=== PATIENT | male | born 1960 | race Caucasian/White ===

== ENCOUNTER 2024-01-27 13:10 | Emergency (ER) | payer BC ==
[~2024-01-27] VITALS: Ht 172.7 cm; Wt 70.5 kg
[2024-01-27 13:12] VITALS: BP 131/88; TEMP 98.3; O2SAT 97
[2024-01-27] MEDS ORDERED: TIMO5DRO5 OP (13:38)
[2024-01-27] MEDS ORDERED: ALEV220T22 PO (13:38)
[2024-01-27] MEDS: KETOROLAC 30 MG/ML 1ML VIAL IV ONE (17:03)
[2024-01-27 17:08] LABS: BASO # 0.1 10^3/uL (0.0-0.2); BASO % 0.9 % (0.0-1.0); EOS # 0.3 10^3/uL (0.0-0.5); EOS % 3.8 % (0.0-3.0); HEMOGLOBIN 15.8 g/dl (13.5-17.5); LYMPH # 2.4 10^3/uL (1.5-5.0); MEAN CORPUSCULAR HEMOGLOBIN 32.8 pg (27.0-33.0); MEAN CORPUSCULAR HGB CONC 34.3 g/dl (32.0-36.5); MEAN CORPUSCULAR VOLUME 95.6 fl (80.0-96.0); MONO # 0.6 10^3/uL (0.0-0.8); MONO % 7.7 % (2.0-8.0); NEUTROPHILS # 4.4 10^3/uL (1.5-8.5); NEUTROPHILS % 56.3 % (36.0-66.0); PLATELET COUNT, AUTOMATED 147 10^3/uL (150-450); RED BLOOD COUNT 4.81 10^6/uL (4.30-6.10); WHITE BLOOD COUNT 7.8 10^3/uL (4.0-10.0)
[2024-01-27 17:09] LABS: APPEARANCE, URINE CLEAR (CLEAR); BACTERIA, URINE AUTO NEGATIVE (NEGATIVE); BILIRUBIN, URINE AUTO NEGATIVE (NEGATIVE); BLOOD, URINE BLOOD NEGATIVE (NEGATIVE); COLOR, URINE YELLOW (YELLOW); GLUCOSE, URINE (UA) AUTO NEGATIVE (NEGATIVE); KETONE, URINE AUTO NEGATIVE (NEGATIVE); LEUKOCYTE ESTERASE, URINE AUTO NEGATIVE (NEGATIVE); NITRITE, URINE AUTO NEGATIVE (NEGATIVE); PROTEIN, URINE AUTO NEGATIVE (NEGATIVE); RBC, URINE AUTO 0 /HPF (0-3); SPECIFIC GRAVITY URINE AUTO 1.009 (1.002-1.035); SQUAMOUS EPITHELIAL CELL UR AU 0 /HPF (0-6); UROBILINOGEN, URINE AUTO 0.2 mg/dL (0.0-2.0); WBC, URINE AUTO 1 /HPF (0-3)
[2024-01-27] MEDS ORDERED: ISOVUE-370 76% 100ML VIAL As Ordered ONE (17:37)
[2024-01-27 17:41] LABS: ALBUMIN 4.3 G/DL (3.2-5.2); BILIRUBIN,DIRECT 0.1 MG/DL (<0.4); BILIRUBIN,TOTAL 0.4 MG/DL (0.3-1.2); TOTAL PROTEIN 7.4 G/DL (5.7-8.2)
[2024-01-27] MEDS ORDERED: IBUP-1022 PO (18:38)
== END 2024-01-27 18:45 | disposition home or self-care (01) ==
LOC: M ED 13:10
DX: S39.011A Strain of muscle, fascia and tendon of abdomen, initial encounter (principal); X50.0XXA Overexertion from strenuous movement or load, initial encounter; Y92.89 Other specified places as the place of occurrence of the external cause; Y93.89 Activity, other specified; Y99.8 Other external cause status; F17.200 Nicotine dependence, unspecified, uncomplicated; Z87.442 Personal history of urinary calculi; Z79.899 Other long term (current) drug therapy
CPT/HCPCS: 74177; 80047; 80076; 81001; 83690; 85025; 96374; 99283; J1885; Q9967

== ENCOUNTER 2024-06-09 11:22 | Emergency (ER) | payer BC ==
[~2024-06-09] VITALS: Ht 172.7 cm; Wt 68.2 kg
[~2024-06-09 11:22] MED LIST: ALEV220T22 PO; IBUP-1022 PO; TIMO5DRO5 OP
[2024-06-09] MEDS ORDERED: ACET-683 (11:30)
[2024-06-09 13:59] VITALS: BP 125/66; TEMP 97.9; O2SAT 99
[2024-06-09] MEDS: BOOSTRIX VACCINE (TETANUS/DIPHTH/ACEL. PERTUSSIS) 0.5ML SYR IM ONE (15:55)
[2024-06-09] MEDS: ACETAMINOPHEN 500 MG TAB PO ONE (16:00)
== END 2024-06-09 16:11 | disposition home or self-care (01) ==
LOC: M ED 11:22
DX: S01.01XA Laceration without foreign body of scalp, initial encounter (principal); S06.0X0A Concussion without loss of consciousness, initial encounter; Y92.9 Unspecified place or not applicable; Y93.9 Activity, unspecified; Y99.0 Civilian activity done for income or pay; W00.0XXA Fall on same level due to ice and snow, initial encounter; Z79.1 Long term (current) use of non-steroidal anti-inflammatories (NSAID)

== ENCOUNTER → 2024-07-31 | Outpatient (CLI) | payer BC ==
[~2024-07-31] MED LIST changes: +ACET-683
[2024-07-31 14:43] LABS: RHEUMATOID FACTOR QUANT 15.7 IU/ML (<14)
[2024-07-31 14:47] LABS: THYROID STIMULATING HORMONE 3.056 uIU/ML (0.55-4.78)
[2024-07-31 14:48] LABS: TOTAL 25(OH) VITAMIN D 18.8 NG/ML (20.0-100.0)
[2024-07-31 14:49] LABS: FOLATE 14.8 NG/ML (>5.4)
[2024-08-02 00:07] LABS: T P ELECTROPHORESIS SO 7.2 g/dL (6.1-8.1)
== END ==
LOC: M WUC 09:46
PROVIDERS: ATTEND Psychiatry & Neurology Neurology
DX: E11.9 Type 2 diabetes mellitus without complications (principal); R51.9 Headache, unspecified; R20.2 Paresthesia of skin

== ENCOUNTER 2024-12-25 11:18 | Inpatient (IN) | payer MEDICARE ==
[~2024-12-25] VITALS: Ht 172.7 cm; Wt 63.8 kg
[~2024-12-25 11:18] MED LIST changes: +AMIT25TA19 PO; +GABA-1172 PO; +OXYC-517 PO; +SENN-186 PO; +SODI650T PO; +wheelchair
[2024-12-25 12:43] LABS: PLATELET COUNT, AUTOMATED 97 10^3/uL (150-450)
[2024-12-25] MEDS ORDERED: HOME MED LIST COMPLETE! XX SCH (13:05)
[2024-12-25] MEDS ORDERED: LIDO1PAD TOP (13:05)
[2024-12-25] MEDS: DEXTROSE 50% 50 ML SYRINGE IV STA ×2 (13:14→18:16)
[2024-12-25] MEDS: D5W/0.9% SODIUM CHLORIDE 1,000 ML IV SCH ×2 (13:14→19:28)
[2024-12-25 14:11] LABS: CALCIUM LEVEL 8.4 MG/DL (8.3-10.6); CARBON DIOXIDE LEVEL 26 MMOL/L (20-31); CHLORIDE LEVEL 96 MMOL/L (98-107); CREATININE FOR GFR 0.33 MG/DL (0.70-1.30); GLOMERULAR FILTRATION RATE > 90.0 (>49); POTASSIUM SERUM 4.5 MMOL/L (3.5-5.1); SODIUM LEVEL 140 MMOL/L (136-145)
[2024-12-25] MEDS: SODIUM CHLORIDE 0.9% INJ 10 ML SYR IV PRN (15:16)
[2024-12-25] MEDS: HEPARIN LOCK FLUSH 100 UNITS/ML 3 ML SYRINGE IV PRN (15:17)
[2024-12-25] MEDS ORDERED: ISOVUE-370 76% 100 ML VIAL As Ordered ONE (15:32)
[2024-12-25] MEDS: [UNRECOGNIZED DRUG - OTHER] IV ONE (15:54)
[2024-12-25] MEDS: NS 0.9% IV ONE (15:54)
[2024-12-25] MEDS: PIPERACILLIN/TAZOBACTAM SOD 4.5 GM in DEXTROSE 5% (D5W) ADV/MINI-BAG 50 ML IV ONE (15:54)
[2024-12-25 16:17] LABS: BASO # 0.1 10^3/uL (0.0-0.2); BASO % 0.3 % (0.0-1.0); EOS # 0.0 10^3/uL (0.0-0.5); EOS % 0.1 % (0.0-3.0); LYMPH # 1.3 10^3/uL (1.5-5.0); LYMPH % 7.0 % (24.0-44.0); MONO # 1.2 10^3/uL (0.0-0.8); MONO % 6.4 % (2.0-8.0); NEUTROPHILS # 15.5 10^3/uL (1.5-8.5); NEUTROPHILS % 84.7 % (36.0-66.0)
[2024-12-25 16:19] LABS: PLATELET COUNT, AUTOMATED 98 10^3/uL (150-450)
[2024-12-25 16:40] LABS: ALT/SGPT 80.0 U/L (7.0-40); AST/SGOT 257.0 U/L (<34)
[2024-12-25] MEDS ORDERED: ACETAMINOPHEN 325 MG TAB PO PRN (18:00)
[2024-12-25] MEDS ORDERED: MAALOX 30 ML SUSP *UDC PO PRN (18:00)
[2024-12-25] MEDS ORDERED: MOM 30 ML SUSPENSION UDC PO PRN (18:00)
[2024-12-25] MEDS ORDERED: GLUCAGON INJ 1 MG VIAL SC PRN (18:50)
[2024-12-25] MEDS ORDERED: GLUCOSE 4 GM CHEW PO PRN (18:50)
[2024-12-25] MEDS: GLUCOSE 4 GM CHEW PO SCH (19:35)
[2024-12-25 20:08] LABS: INR 1.09
[2024-12-25 21:20] LABS: ABG BASE EXCESS -10.2 (-2.0-2.0); ABG HCO3 14.0 MMOL/L (22.0-26.0); ABG O2 SATURATION 94.8 % (95.0-99.0); ABG PARTIAL PRESSURE CO2 26.7 mmHg (35.0-45.0); ABG PARTIAL PRESSURE O2 85.3 mmHg (75.0-100.0); ABG STANDARD HCO3 16.3 MMOL/L. (22.0-26.0); ABG TOTAL CO2 14.9 MMOL/L (23.0-31.0); ABG pH (ARTERIAL) 7.339 UNITS (7.350-7.450)
[2024-12-25] MEDS: PIPERACILLIN/TAZOBACTAM SOD 4.5 GM in DEXTROSE 5% (D5W) ADV/MINI-BAG 50 ML IV SCH (21:20)
[2024-12-26] MEDS: D5/LACTATED RINGERS 1000 ML IV ONE (00:28)
[2024-12-26 05:35] VITALS: BP 130/80; TEMP 98.2; O2SAT 96
[2024-12-26 07:02] LABS: BASO # 0.1 10^3/uL (0.0-0.2); BASO % 0.4 % (0.0-1.0); EOS # 0.1 10^3/uL (0.0-0.5); EOS % 0.3 % (0.0-3.0); LYMPH # 1.3 10^3/uL (1.5-5.0); LYMPH % 7.9 % (24.0-44.0); MONO # 1.3 10^3/uL (0.0-0.8); MONO % 8.2 % (2.0-8.0); NEUTROPHILS # 12.9 10^3/uL (1.5-8.5); NEUTROPHILS % 80.4 % (36.0-66.0)
[2024-12-26 07:04] LABS: PLATELET COUNT, AUTOMATED 91 10^3/uL (150-450)
[2024-12-26 07:39] LABS: ALT/SGPT 76 U/L (7.0-40); AST/SGOT 222 U/L (<34); CALCIUM LEVEL 8.4 MG/DL (8.3-10.6); CARBON DIOXIDE LEVEL 20 MMOL/L (20-31); CHLORIDE LEVEL 99 MMOL/L (98-107); CREATININE FOR GFR 0.45 MG/DL (0.70-1.30); GLOMERULAR FILTRATION RATE > 90.0 (>49); MAGNESIUM LEVEL 1.6 MG/DL (1.8-2.4); PHOSPHORUS LEVEL 3.4 MG/DL (2.4-5.1); POTASSIUM SERUM 3.9 MMOL/L (3.5-5.1); SODIUM LEVEL 144 MMOL/L (136-145)
[2024-12-26 07:45] LABS: ABG BASE EXCESS -11.7 (-2.0-2.0); ABG HCO3 13.5 MMOL/L (22.0-26.0); ABG O2 SATURATION 95.0 % (95.0-99.0); ABG PARTIAL PRESSURE CO2 29.2 mmHg (35.0-45.0); ABG PARTIAL PRESSURE O2 86.5 mmHg (75.0-100.0); ABG STANDARD HCO3 15.3 MMOL/L. (22.0-26.0); ABG TOTAL CO2 14.4 MMOL/L (23.0-31.0); ABG pH (ARTERIAL) 7.284 UNITS (7.350-7.450)
[2024-12-26 08:00] VITALS: BP 117/75; TEMP 97.5; O2SAT 97
[2024-12-26] MEDS: SODIUM BICARBONATE 150 MEQ in D5W 1,000 ML IV SCH (08:38)
[2024-12-26] MEDS: THIAMINE 200MG 2ML VIAL IM SCH (08:39)
[2024-12-26] MEDS ORDERED: GLUCOSE 4 GM CHEW PO SCH (09:00)
[2024-12-26] MEDS: DEXTROSE 50% 50 ML SYRINGE IV PRN (09:52)
[2024-12-26] MEDS: MAG SULF 1GM/100ML (MAG RUN) 1 GM in IV 1 EA IV SCH (10:41)
[2024-12-26] MEDS ORDERED: MORPHINE 10 MG/0.5 ML ORAL CONCENTRATE SOLUTION U/D SL PRN (11:35)
[2024-12-26] MEDS ORDERED: SALIVA SUBSTITUTE BTL MT PRN (11:35)
[2024-12-26] MEDS ORDERED: LORazepam 1 MG TAB PO PRN (11:35)
[2024-12-26] MEDS ORDERED: ATROPINE SULFATE 1% OPHTH SOLN 2 ML BTL SL PRN (11:35)
[2024-12-26] MEDS ORDERED: POLYVINYL ALCOHOL OPHTH SOLN 15ML (LIQUITEARS) OU PRN (11:35)
[2024-12-26] MEDS ORDERED: HYOSCYAMINE SULFATE 0.125 MG SUBL TABLET PO PRN (11:35)
[2024-12-26] MEDS ORDERED: ONDANSETRON 4MG ORAL DISINTEGRATING TAB PO PRN (11:35)
[2024-12-26] MEDS: MORPHINE 2 MG/ML 1 ML VIAL IV ONE (11:54)
[2024-12-26] MEDS: GLUCOSE 4 GM CHEW PO SCH (13:00)
[2024-12-26] MEDS: MORPHINE 10 MG/0.5 ML ORAL CONCENTRATE SOLUTION U/D SL SCH (15:57)
[2024-12-26] MEDS: LORazepam 1 MG TAB PO SCH (20:42)
[2024-12-28 17:20] VITALS: O2SAT 96
[2024-12-29] MEDS: SODIUM BICARBONATE 325 MG TAB PO SCH (14:00)
[2024-12-29] MEDS: MORPHINE 10 MG/0.5 ML ORAL CONCENTRATE SOLUTION U/D SL PRN (22:29)
[2024-12-31] MEDS ORDERED: ATIV1TAB10 PO (15:39)
[2024-12-31] MEDS ORDERED: GLUC4GMTAB PO (15:39)
[2024-12-31] MEDS ORDERED: MORP1SOL5 PO (15:39)
[2025-01-01] MEDS ORDERED: LIDOCAINE 5% PATCH TD ONE (08:50)
[2025-01-01] MEDS ORDERED: LIDO1ADH93 TOP (08:52)
[2025-01-01] MEDS: LIDOCAINE 5% PATCH TD ONE (09:05)
== END 2025-01-01 09:25 | disposition hospice, home (50) | DRG 871 ==
LOC: M ED 11:18 → EDBD 11:18 → M ED INP 17:56 → M PCU 12-26 05:33 → M MS5PR 12-29 22:10
PROVIDERS: ADMIT Student in an Organized Health Care Education/Training Program; ATTEND Student in an Organized Health Care Education/Training Program
DX: A41.9 Sepsis, unspecified organism (principal); K65.2 Spontaneous bacterial peritonitis; E87.20 Acidosis, unspecified; C15.9 Malignant neoplasm of esophagus, unspecified; C78.7 Secondary malignant neoplasm of liver and intrahepatic bile duct; K76.6 Portal hypertension; E46 Unspecified protein-calorie malnutrition; R64 Cachexia; R18.8 Other ascites; J98.11 Atelectasis; D69.6 Thrombocytopenia, unspecified; E16.2 Hypoglycemia, unspecified; R16.0 Hepatomegaly, not elsewhere classified; R74.01 Elevation of levels of liver transaminase levels; G89.29 Other chronic pain; Z51.5 Encounter for palliative care; Z66 Do not resuscitate; Z98.1 Arthrodesis status; Z79.899 Other long term (current) drug therapy; Z87.442 Personal history of urinary calculi